=== PATIENT | male | born 1970 | race American Indian/Alaskan Native ===

== ENCOUNTER 2017-10-01 19:15 | Emergency (ER) | payer OTHER, BC ==
[2017-10-01] MEDS ORDERED: TYLENOL PO ONE (21:52)
[2017-10-01] MEDS ORDERED: TYLENOL ONE (21:53)
[2017-10-02] MEDS ORDERED: NORCO 5/325 PO ONE (08:31)
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
[2017-10-02 09:53] VITALS: BP 132/107
--- NOTE | 2017-10-02 10:47 | XRay Report ---
LEFT WRIST 2 views: HISTORY: Left wrist pain. AP and lateral views demonstrate the carpal bones to be well mineralized with well preserved bony mineralization and interosseous joint spaces. The carpal and adjacent articular bones have normal contours. The surrounding soft tissues are unremarkable. IMPRESSION: Normal study.
--- NOTE | 2017-10-02 10:47 | XRay Report ---
LEFT KNEE, 2 views: History: Left knee pain. The bony architecture is intact without evidence of fracture or dislocation. No significant soft tissue abnormality is seen. IMPRESSION: Normal left knee.
== END 2017-10-02 09:54 | disposition home or self-care (01) ==
LOC: ED 19:15
DX: S63.502A Unspecified sprain of left wrist, initial encounter (principal); S83.8X2A Sprain of other specified parts of left knee, initial encounter; V89.2XXA Person injured in unspecified motor-vehicle accident, traffic, initial encounter; Y93.89 Activity, other specified; Y92.89 Other specified places as the place of occurrence of the external cause; Y99.8 Other external cause status
CPT/HCPCS: 99283